=== PATIENT | female | born 1995 | race Caucasian/White ===

== ENCOUNTER 2017-01-05 02:14 | Emergency (ER) | payer BC ==
[~2017-01-05] VITALS: Ht 162.6 cm; Wt 92.7 kg
[~2017-01-05 02:14] MED LIST: BONINE25 MG PO; DOXYCYCLINE HY100 MG PO; FLEXERIL10 MG PO; FLEXERIL5 MG PO; JUNEL FE 1.5-31 EACH PO; LEVO-T50 MCG PO; METFORMIN HCL1000 MG PO; NAPROSYN500 MG PO; NORCO 5/3251 TABLET PO; SEPTRA DS TABL1 EACH PO; TIROSINT50 MCG PO; VIBRAMYCIN100 MG PO; VICODIN 5-3001 EACH PO; ZYRTEC10 M3 PO
[2017-01-05 03:10] LABS: EOSINOPHIL COUNT 0.1 K/uL (0-0.3); HEMATOCRIT 45.2 % (36.0-46.0); IMMATURE GRANULOCYTE (%) 0.4 % (0.0-0.7); MCH 32.5 PG (29.0-34.0); MCHC 32.7 G/DL (30.0-36.0); MCV 99.3 FL (83-99); MEAN PLAT.VOLUME 9.8 uM^3 (9.5-12.4); MONOCYTE COUNT 0.5 K/uL (0-0.8); NEUTROPHIL (%) 65.1 % (45-76); PLATELET COUNT 275 K/uL (156-360); RBC DIS.WIDTH-CV 11.9 % (11.8-14.6); RBC DIS.WIDTH-SD 43.6 % (39-53); RED BLOOD COUNT 4.55 M/uL (3.80-5.20); WHITE BLOOD COUNT 10.7 K/uL (4.1-10.2)
[2017-01-05 03:21] LABS: CHLORIDE 110 mEq/L (99-109); POTASSIUM 3.5 mEq/L (3.7-5.4); SODIUM 145 mEq/L (136-147)
[2017-01-05 03:24] LABS: GLUCOSE 92 mg/dL (70-99)
[2017-01-05 03:25] LABS: ANION GAP 11 MEQ/L (2-14)
[2017-01-05 03:26] LABS: TOTAL BILIRUBIN 0.2 mg/dL (0.0-1.0)
[2017-01-05 03:27] LABS: GFR ESTIMATE (CALCULATED) > 59 mL/min/; SERUM ETHYL ALCOHOL 310 mg/dL
[2017-01-05 03:28] LABS: ALKALINE PHOSPHATASE 69 IU/L (3-129)
[2017-01-05 03:29] LABS: UREA NITROGEN (BUN) 15 mg/dL (9-23)
[2017-01-05 03:31] LABS: SALICYLATE < 5.0 MG/DL (15-30)
[2017-01-05 03:37] LABS: QUANTITATIVE HCG < 4.0 MIU/ML
[2017-01-05 04:49] LABS: ADD MEDTOX COMMENT Y; AMPHETAMINE NEGATIVE (500 ng/mL); BARBITURATES NEGATIVE (200 ng/mL); BENZODIAZEPINES PRESUMPTIVE POSITIVE (150 ng/mL); COCAINE PRESUMPTIVE POSITIVE (150 ng/mL); INTERNAL CONTROLS VALID? YES; METHADONE NEGATIVE (200 ng/mL); METHAMPHETAMINE NEGATIVE (500 ng/mL); OPIATES (MORPHINE) NEGATIVE (100 ng/mL); OXYCODONE NEGATIVE (100 ng/mL); PHENCYCLIDINE NEGATIVE (25 ng/mL); PROPOXYPHENE NEGATIVE (300 ng/mL); THC CANNABINOIDS PRESUMPTIVE POSITIVE (50 ng/mL); TRICYCLIC ANTIDEPRESSANTS NEGATIVE (300 ng/mL)
[2017-01-05 05:32] LABS: BENZODIAZEPINES, URINE SCREEN POSITIVE (200 ng/mL)
[2017-01-05 10:41] VITALS: BP 99/59
== END 2017-01-05 10:42 | disposition home or self-care (01) ==
LOC: EME 02:14 → EDBD 02:14 → EME 02:14
PROVIDERS: Emergency Medicine
DX: F10.129 Alcohol abuse with intoxication, unspecified (principal); F19.10 Other psychoactive substance abuse, uncomplicated; Y90.8 Blood alcohol level of 240 mg/100 ml or more; E11.9 Type 2 diabetes mellitus without complications; F17.200 Nicotine dependence, unspecified, uncomplicated
CPT/HCPCS: 80053; 84702; 84999; 85025; 99281; 99285; G0480; J7030